=== PATIENT | female | born 1960 | race African-American/Black ===

== ENCOUNTER 2018-10-28 18:26 | Emergency (ER) | payer OTHER ==
[~2018-10-28] VITALS: Ht 162.6 cm; Wt 61.2 kg
[~2018-10-28 18:26] MED LIST: ALPRAZOLAM 0.50.5 MG PO; AMBIEN 10 MG TA10 MG PO; CARVEDILOL6.25 MG PO; CELEXA40 MG PO; CLEOCIN HCL300 MG PO; CLONAZEPAM 0.50.5 M1; CLOTRIMAZOLE-BE15 GM TP; CYPROHEPTADINE 44 MG PO; DEPAKOTE 250MG250 M1; DOXYCYCLINE 10100 MG PO; HYDROCODON-ACE1 EAC7 PO; HYDROCODON-ACE1 EACH PO; HYDROXYZINE HCL25 M2 PO; LOSARTAN-HCTZ1 EACH PO; NAPROSYN500 MG PO; NAPROXEN DELAY500 M1 PO; NARATRIPTAN2.5 MG PO; NEURONTIN 300300 M1 PO; NORCO 5-325 TA1 EACH PO; NORTRIPTYLINE H75 M1 GT; NORTRIPTYLINE H75 M1 PO; PERCOCET 5-3251 EACH PO; PREDNISONE50 MG PO; PROAIR HFA8.5 GM IH; RESTORIL15 MG PO; SIMVASTATIN20 MG PO; SUMATRIPTAN SU100 MG PO; TIZANIDINE HCL4 M1 PO; TOPIRAMATE ER200 MG PO; TRILEPTAL 300300 MG PO; VENLAFAXIN75 MG/1 T2 PO; VICODIN 5-5001 EACH PO; VOLTAREN GEL 1100 G1; VOLTAREN GEL 1100 G1 TOP; XANAX 0.5 MG0.5 M1 PO; ZOCOR 20 MG TAB20 M1 PO; ZOFRAN4 MG PO
[2018-10-28 19:39] VITALS: BP 130/75
== END 2018-10-28 19:41 | disposition home or self-care (01) ==
LOC: ER 18:26
DX: S63.631A Sprain of interphalangeal joint of left index finger, initial encounter (principal); S80.02XA Contusion of left knee, initial encounter; F17.210 Nicotine dependence, cigarettes, uncomplicated; I10 Essential (primary) hypertension; G43.909 Migraine, unspecified, not intractable, without status migrainosus; Z88.0 Allergy status to penicillin; Z88.2 Allergy status to sulfonamides; Z88.1 Allergy status to other antibiotic agents; Z88.8 Allergy status to other drugs, medicaments and biological substances; Z88.6 Allergy status to analgesic agent; W01.0XXA Fall on same level from slipping, tripping and stumbling without subsequent striking against object, initial encounter; Y92.89 Other specified places as the place of occurrence of the external cause; Y93.89 Activity, other specified; Y99.8 Other external cause status